=== PATIENT | male | born 1990 | race Two or more races ===

== ENCOUNTER 2018-05-10 20:19 | Emergency (ER) | payer SELFPAY ==
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
[2018-05-10 20:43] VITALS: BP 131/77
[2018-05-10] MEDS ORDERED: LIDOCAINE Urojet 5 ML JEL MM ONE (21:28)
[2018-05-10] MEDS ORDERED: Lidocaine 2% 20ml Vial ONE (21:28)
--- NOTE | 2018-05-10 21:49 | Diagnostic Imaging Report ---
GUILLERMINA TALBOT [facility] [address] [facility] [address] [place] [id number] [id number] Report Submission Date: May 10, 2018 9:04:01 PM CDT Patient Study Name: LAMAR LOUIS Date: May 10, 2018 8:39:33 PM CDT Modality Type: CT Gender: M Description: CT BRAIN W/O CONTRAST : 90 Institution: [facility] Physician: GUILLERMINA TALBOT CT head without contrast HISTORY Headache, dizziness. TECHNIQUE Images through the brain were obtained without contrast. FINDINGS No mass, midline shift, obstructive hydrocephalous or acute intracranial hemorrhage is present. The ventricles are normal. No extra-axial fluid collection is identified. IMPRESSION Normal. Electronically signed on May 10, 2018 9:04:01 PM CDT by: Augustin OH
--- NOTE | 2018-05-10 21:50 | Diagnostic Imaging Report ---
GUILLERMINA TALBOT [facility] [place] [facility] [address] [facility] [address] [place] [id number] [id number] Report Submission Date: May 10, 2018 9:04:59 PM CDT Patient Study Name: LAMAR LOUIS Date: May 10, 2018 8:42:04 PM CDT Modality Type: DX Gender: M Description: CHEST : 90 Institution: [facility] Physician: GUILLERMINA TALBOT Chest two views History: Chest pain and shortness of breath Findings: The lungs are clear. There is no pleural effusion or pneumothorax. Heart size and pulmonary vascularity are normal. Osseous structures are unremarkable. Impression: Normal. Electronically signed on May 10, 2018 9:04:59 PM CDT by: Cole [place]
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
== END 2018-05-10 22:20 | disposition home or self-care (01) ==
LOC: ED 20:19
DX: S02.2XXA Fracture of nasal bones, initial encounter for closed fracture (principal); S01.511A Laceration without foreign body of lip, initial encounter; S00.81XA Abrasion of other part of head, initial encounter; R22.0 Localized swelling, mass and lump, head; Y04.0XXA Assault by unarmed brawl or fight, initial encounter; Y92.149 Unspecified place in prison as the place of occurrence of the external cause; Y93.9 Activity, unspecified; Y99.9 Unspecified external cause status
CPT/HCPCS: 12011; 70450; 70486; 71046; 96372